=== PATIENT | female | born 1965 | race Caucasian/White ===

== ENCOUNTER 2017-04-08 06:52 | Inpatient (IN) ==
--- NOTE | 2017-04-07 19:01 | Discharge Summary ---
<Nyla Sherman E - Last Filed: 04/10/17 17:34> Date of Encounter: 04/10/17 Time of Encounter: 17:31 - Discharge Diagnosis (1) Osteoarthritis of left knee Priority: Primary Status: Chronic Qualifiers: Osteoarthritis type: unspecified Qualified Code(s): M17.12 - Unilateral primary osteoarthritis, left knee (2) Fracture of left tibial plateau Priority: Primary Status: Acute Qualifiers: Encounter type: sequela Fracture type: closed Qualified Code(s): S82.142S - Displaced bicondylar fracture of left tibia, sequela (3) Osteopenia Priority: Secondary Status: Chronic Qualifiers: Osteopenia location: unspecified Qualified Code(s): M85.80 - Other specified disorders of bone density and structure, unspecified site (4) Hyponatremia Priority: Secondary Status: Chronic (5) Nicotine dependence Priority: Secondary Status: Chronic Qualifiers: Nicotine product type: unspecified Substance use status: unspecified nicotine-induced disorder Qualified Code(s): F17.209 - Nicotine dependence, unspecified, with unspecified nicotine-induced disorders (6) Postoperative anemia Priority: Secondary Status: Resolved - Discharge Medications Home Medications: Albuterol Sulfate [Ventolin Hfa] 1 - 2 puff IH Q4-6H PRN 01/15/16 [History] Lisinopril [Zestril] 10 mg PO DAILY 01/15/16 [History] Mv,Ca,Fe,Min/FA/Guarana/Caff [One Daily Tablet] 1 tab PO DAILY 01/15/16 [History ] Loratadine [Claritin] 10 mg PO DAILY 02/20/16 [History] Aspirin Enteric Coated [Aspirin EC] 325 mg PO DAILY 21 Days #21 tablet. [Rx] OxyCODONE Immed Rel [Roxicodone 5 MG] 5 mg PO Q6HR PRN 7 Days #28 tablet [Rx] Ibuprofen [Motrin] 600 mg PO Q8HR PRN 04/08/17 [History] Allergies/Adverse Reactions: 3 Allergy/AdvReac Type Severity Reaction Status Date / Time No Known Allergies Allergy Verified 04/08/17 07:41 Date of admission: 04/08/17 Primary care physician: Charles Chang Discharging clinician: Jad Sanders Anticipated date of discharge: 04/10/17 - Patient Status Disposition: Home Health Service Condition: Good Functional capacity at discharge: uses cane/walker Overall status at discharge: patient is progressing back to baseline - Discharge Instructions Instructions: Total Knee Replacement, Clinic Director (GEN) Follow Up With: yNla Sherman PAC [Physician Spool Carrier] - 04/17/17 10:45 am (& also, , April 23, 2017 at 08:30 AM) Jad Sanders MD [Partnered Physician] - 05/06/17 3:30 pm Charles Chang MD [Primary Care Provider] - Additional Instructions: Discharge Instructions: Total Knee Replacement Please call [facility] ([phone]), your Primary Care Physician, or report to the Emergency Room if you have any of the following symptoms: Nausea, vomiting, fever greater that 101.5, swelling, chest pain, shortness of breath, increased pain/redness/drainage/odor for your incision site, numbness/ tingling, or any other concerning symptoms. ACTIVITY:Weight-bearing as tolerated. You may progress off support (crutches or walker) as tolerated. MEDICATIONS: Upon discharge resume your home medications. Take all the medications as prescribed. Take a stool softener if taking narcotic pain medications. Stool softeners are only effective if you drink enough fluids. Drink 6-8 glass of water or fluids a day, unless this is not allowed for another health problem. Despite using stool softeners, if you haven't had a bowel movement in 3 days, please switch to a gentle laxative. Gentle laxatives are sold over the counter. You should have a bowel movement within 24 hours, if not call the office. You will be discharged from the hospital with a prescription for pain medication. You are encouraged to decrease the use of narcotic pain medication as tolerated. Should you require a refill, please call the office. [facility] prescribes narcotic pain medication for only 4-6 weeks after surgery. If you require pain medication beyond this time period, you may be referred to your Primary Care Physician or to the Pain Clinic for further evaluation. Plan ahead for refills on pain medication as many narcotics either need to be picked up at the office or mailed. It is best to call 48-72 hours in advance of needing a prescription refill so you don't run out of medication. To help control the post-operative pain, you may take NSAIDs (Aleve,Advil, Motrin, Ibuprofen, Naprosyn) or Tylenol as prescribed on the bottle in addition to the pain medication. ANTICOAGULATION (blood thinners): Continue your Aspirin, Lovenox or Coumadin as prescribed to help prevent a blood clot in the leg or in the lungs. As long as your incision remains dry and you tolerate the NSAIDs (Aleve, Advil, Motrin, ibuprofen, naprosyn), it is OK to use the NSAIDS while you are taking your anticoagulation medication. Should your incision start to drain, stop the NSAID and contact our office. Common symptoms of blood clot in the legs include: localized pain, swelling, calf tenderness, redness or discoloration of the skin. Blood clot in the lung symptoms include: shortness of breath, rapid pulse, sweating, and chest pain that worsens with deep breathing, coughing up blood, lightheadedness, feelings of anxiety. If you experience any of these symptoms notify your physician immediately, go to the emergency room, or if having trouble breathing, call 911. WOUND CARE: Leave the dressing on for 7 to 10days. You may change the dressing if it becomes saturated greater than 50%. Do not get the dressing wet at anytime. Wash your hands with antibacterial soap, rinse and dry prior to any wound care. If you have french the visiting nurse or rehab facility can remove the stapes 10-14 days after surgery and place steri-strips across the wound. Leave the steri-strips in place until they fall off on their won. You may let water from the shower run on top of the steri-strips. If you do not have a visiting nurse or rehab facility, you will need to return to the office at 10-14 days for the french to be removed. If you have itching or redness around the dressing call the office. FOLLOW-UP: Please follow up with your surgeon in the orthopedic clinic in 4 weeks from the day of surgery. If you have french that need to be removed, you will need to come back to the office in 10-14 days from the day of surgery. - Diet and Activity Activity: as per physical therapy Diet: advance to your usual diet - Hospital Course Hospital course: Ms. Cage is a 51 year old female - Time Spent with Patient Total time spent providing and/or coordinating discharge services: - VTE Documentation of Mechanical Device: Venous foot pump, device <Jad Sanders - Last Filed: 04/13/17 18:51> Date of Encounter: 04/13/17 Time of Encounter: 18:50 - Discharge Diagnosis (1) Fracture of left tibial plateau Priority: Primary Status: Acute Qualifiers: Encounter type: sequela Fracture type: closed Qualified Code(s): S82.142S - Displaced bicondylar fracture of left tibia, sequela (2) Osteopenia Priority: Secondary Status: Chronic Qualifiers: Osteopenia location: unspecified Qualified Code(s): M85.80 - Other specified disorders of bone density and structure, unspecified site (3) Hyponatremia Priority: Secondary Status: Chronic (4) Nicotine dependence Priority: Secondary Status: Chronic Qualifiers: Nicotine product type: unspecified Substance use status: unspecified nicotine-induced disorder Qualified Code(s): F17.209 - Nicotine dependence, unspecified, with unspecified nicotine-induced disorders (5) Acute blood loss anemia Priority: Primary Status: Acute Primary care physician: Charles Chang - Patient Status Functional capacity at discharge: uses cane/walker Overall status at discharge: patient is progressing back to baseline - Hospital Course Hospital course: Ms. Cage is a 51 year old female Status post total knee replacement for fracture. Of lateral plateau. Patient had drop in hematocrit asymptomatic at discharge stable condition The patient had an uneventful postoperative course. They received antibiotics and physical therapy and were discharged in stable condition. There will follow -up in the office in 2 weeks. - Time Spent with Patient Total time spent providing and/or coordinating discharge services:
--- NOTE | 2017-04-07 19:03 | Physician Discharge Referral ---
Home Health/Hosp Referral Info Transfer to: Home Health Attending Provider: Dr. Jad Sanders - Diagnosis (1) Osteoarthritis of left knee Priority: Primary Status: Chronic (2) Fracture of left tibial plateau Priority: Primary Status: Acute (3) Osteopenia Priority: Secondary Status: Chronic (4) Hyponatremia Priority: Secondary Status: Chronic (5) Nicotine dependence Priority: Secondary Status: Chronic - Respiratory Orders Smoking Cessation: Smoking cessation has been advised. For more information, call the [place] Tobacco Quit Line at 8-568-JFVZ-NOW. - Dressing/Wound Care Site: left knee Type of Dressing/Treatments w/Frequency: Opsite placed. Keep dressing intact until first follow up appointment. If > 50% saturated, notify office, remove dressing and place appropriate dressing back in place. Dressing is water resistant, not water-proof. OK to shower, but do not get dressing wet. - Diet/Nutrition Diet/Nutrition Orders: Regular - Activity Activity Orders: Up ad landry, Ambulate, Walker Activity: List: Total Knee replacement Precautions x 6 weeks Apply cold therapy wrap 3-6x/day for 20 minutes at a time. Encourage ambulation throughout the day and incentive spirometer 10x/hour. Elevate affected extremity above heart as tolerated. Brace: Wear knee immobilizer at night x 2 weeks. - Services Needed Following services are medically necessary services: Nursing, Physical Therapy, Occupational Therapy - Transfer Medications Prescriptions: OxyCODONE Immed Rel [Roxicodone 5 MG] 5 mg PO Q6HR PRN 7 Days #28 tablet PRN Reason: Pain Aspirin Enteric Coated [Aspirin EC] 325 mg PO DAILY 21 Days #21 tablet. Home Medications: Albuterol Sulfate [Ventolin Hfa] 1 - 2 puff IH Q4-6H PRN 01/15/16 [History] Calcium Carbonate [Calcium] 500 mg PO DAILY 01/15/16 [History] Gabapentin [Gabapentin] 800 mg PO QID 01/15/16 [History] HYDROcodone/Acet 10/325 mg [Joppa 10-325 mg] 1 tab PO TID PRN 01/15/16 [History] Lisinopril [Zestril] 10 mg PO DAILY 01/15/16 [History] Meloxicam [Meloxicam] 7.5 mg PO BID 01/15/16 [History] Mv,Ca,Fe,Min/FA/Guarana/Caff [One Daily Tablet] 1 tab PO DAILY 01/15/16 [History ] Tiotropium [place] [Spiriva Respimat] 1 puff IH DAILY 01/15/16 [History] Amitriptyline [Elavil] 25 mg PO HS 02/20/16 [History] Lidocaine [Lidovex] 1 appl TP AD 02/20/16 [History] Loratadine [Claritin] 10 mg PO DAILY 02/20/16 [History] Oxycodone HCl/Acetaminophen [Percocet 10-325 mg Tablet] 1 each PO Q6HR PRN #28 tablet 02/20/16 [Rx] HYDROcodone/Acet 5/325 mg [Joppa 5-325 mg] 1 tab PO Q4H PRN #15 tab 07/14/16 [Rx ] Aspirin Enteric Coated [Aspirin EC] 325 mg PO DAILY 21 Days #21 tablet. [Rx] OxyCODONE Immed Rel [Roxicodone 5 MG] 5 mg PO Q6HR PRN 7 Days #28 tablet [Rx] Allergies/Adverse Reactions: 3 Allergy/AdvReac Type Severity Reaction Status Date / Time No Known Allergies Allergy Verified 02/20/16 07:10 Certification: Further, I certify that my clinical findings support that this patient is homebound (i.e. absences from home require considerable and taxing effort and are for medical reasons or jainism services or infrequently or short duration when for other reasons) because: Homebound Reason: Post-surgery restriction and or conditions limit ability to leave home Attestation: My signature below is to certify that this patient is under my care and that I, or nurse practitioner, or a physician assistant dean working with me, has a face-to- face encounter with this patient.
[2017-04-08] MEDS ORDERED: Albuterol 2.5 MG/3 ML NEBULIZER IH ONE (07:26)
[2017-04-08] MEDS ORDERED: CeFAZolin Syr 2,000MG/20 ML 2,000 MG/20 ML SYRINGE IVPB ONE (07:26)
[2017-04-08] MEDS ORDERED: Lidocaine -MPF 1% 2 ML VIAL ID ONE (07:26)
[2017-04-08] MEDS ORDERED: Ringers Solution, Lactated 1,000 ML IVC SCH ×2 (07:30→11:07)
[2017-04-08] MEDS ORDERED: Ketamine *HR* 500 MG/10 ML MDV ONE (07:38)
[2017-04-08] MEDS ORDERED: *HR* Midazolam HCl 2 MG/2 ML VIAL ONE (07:38)
[2017-04-08] MEDS ORDERED: *HR* Propofol 200 MG/20 ML VIAL IVP ONE (07:38)
[2017-04-08] MEDS ORDERED: *HR* FentaNYL (PF) 100 MCG/2 ML VIAL ONE (07:38)
[2017-04-08] MEDS ORDERED: Lidocaine -MPF 2% 2 ML VIAL ONE (07:41)
--- NOTE | 2017-04-08 07:41 | Anesthesia Evaluation PreOp ---
Date of Encounter: 04/08/17 Time of Encounter: 07:39 - Past History Planned Operation: Left Total Knee Cardiac History: HTN Pulmonary History: Smoker, Pack/yr (1/2 ppd x 8 years) [employer] History: Denies Any Significant HX Other Medical History: Denies Any Significant HX Anesthesia History: No Prior Anesthetic Complications, Past Anesthesia (Right ankle sx) : No Alcohol Use: none Drug use: none Medications and Allergies Albuterol Sulfate [Ventolin Hfa] 1 - 2 puff IH Q4-6H PRN 01/15/16 [History] Lisinopril [Zestril] 10 mg PO DAILY 01/15/16 [History] Mv,Ca,Fe,Min/FA/Guarana/Caff [One Daily Tablet] 1 tab PO DAILY 01/15/16 [History ] Loratadine [Claritin] 10 mg PO DAILY 02/20/16 [History] Aspirin Enteric Coated [Aspirin EC] 325 mg PO DAILY 21 Days #21 tablet. [Rx] OxyCODONE Immed Rel [Roxicodone 5 MG] 5 mg PO Q6HR PRN 7 Days #28 tablet [Rx] Ibuprofen [Motrin] 600 mg PO Q8HR PRN 04/08/17 [History] 3 Allergy/AdvReac Type Severity Reaction Status Date / Time No Known Allergies Allergy Verified 04/08/17 07:41 - Meds/Allergy Pre-op Review Medications Reviewed: Yes Allergies Reviewed: Yes Beta Blockers on Current Med List: No Anesthesia Results - Labs Laboratory Tests 04/06/17 04/06/17 04/07/17 13:46 13:46 17:40 WBC 4.6 Hgb 11.0 L Hct 33.4 L Plt Count 432 H INR 0.9 Sodium 127 L Potassium 4.0 Chloride 95 L Carbon Dioxide 25 BUN 5 L Creatinine 0.66 - Imaging EKG: image reviewed (SINUS TACHYCARDIA POSSIBLE RIGHT VENTRICULAR CONDUCTION DELAY ABNORMAL RHYTHM ECG) Anesthesia Exam O2 Sat Height 1.57 m Height 1.57 m Height 1.57 m Weight 47.627 kg Weight 47.627 kg Weight 47.627 kg O2 Sat by Pulse Oximetry 93 O2 Sat by Pulse Oximetry 93 O2 Sat by Pulse Oximetry 93 Vital Signs Temp Pulse Resp BP Pulse Ox 98.4 F 98 18 122/79 93 04/08/17 07:20 04/08/17 07:20 04/08/17 07:20 04/08/17 07:20 04/08/17 07:20 - HEENT Pupil (Motor): Pupils equal, EOMI Mallampati: I Teeth: Normal Oral Opening: Greater than 3 - [employer] LOC: Oriented [employer] Motor: Normal RUE, Normal LUE, Normal RLE, Normal LLE, Normal Face [employer] Sensory: Normal: RUE, LUE, RLE, LLE, Face - Cardiac Rhythm: Regular Murmur: None JVD: No Carotid Bruit: No - Pulmonary Breath Sounds: bilateral Clear Respiratory Effort: Symmetrical Anesthesia Assess/Plan ASA Score: 2 Modified Jena Scale for Level of Consciousness: Cooperative, oriented, and tranquil Anesthetic Plan: General, Regional (Left Fem. Nerve Block) Autologous Blood: Yes Monitoring Plan: Standard Monitors Recovery Plan: PACU
[2017-04-08] MEDS ORDERED: Ethanol\\Acetic Acid\\Na Ace\\Ben 1,000 ML IRRIG.SOLN IR ONE (07:44)
[2017-04-08] MEDS ORDERED: Acetaminophen IV 1,000 MG/100 ML INFUS..BTL ONE (07:45)
[2017-04-08] MEDS ORDERED: Bupivacaine-MPF 0.25% 10 ML VIAL ONE (07:45)
[2017-04-08] MEDS ORDERED: ROPIVACAINE HCL/PF 0.5% 30 ML VIAL ONE (07:45)
--- NOTE | 2017-04-08 07:46 | History & Physical Report ---
Date of Encounter: 04/08/17 Time of Encounter: 07:46 24 Hour HP Update - Instructions Instructions: If the History and Physical is less than 30 days old and was completed prior to A.M. admission and or procedure and has NOT been updated on calendar day of procedure please complete this update prior to performing procedure. - Update Patient reports changes in Medical Condition: No Changes in examination, assessment, or condition: No Changes in Medication: No Preop tests/diagnostics Reviewed: Yes Surgery Remains Indicated: Yes Consent for Planned Operative Procedure(s) Verified: Yes - Pre-Operative Checklist Preoperative Checklist Indicated: No Prophylactic Antibiotic Ordered: Yes Is VTE Prophylaxis Indicated?: Yes
--- NOTE | 2017-04-08 08:23 | Anesthesia Procedures ---
Date of Encounter: 04/08/17 Time of Encounter: 08:21 Procedures: Anesthesia - Nerve Block Procedure Date: 04/08/17 Time: 08:21 Allergies/Adv Reactions: nka Pre-op Diagnosis: left knee OA Surgical Procedure: left TKA Checklist: Correct Patient Identifier Correct side: Left Blood Thinner: No Monitor Applied: EKG, BP, Pulse Oximetry Supplemental Oxygen via Nasal Cannula (L/min): 2 Sedation: Versed (mg): 2 Sedation: Fentanyl (mcg): 100 Indication: Post Op Analgesia Pre-op Neuro Deficits: No Block Type: Femoral, Other (ipack) Catheter placed: No Sterile Technique: Yes Ultrasound used: Yes Anatomy identified: Yes Visual spread of Local: Yes Neuro Stimulation: Yes (femoral only) Nerve Stimulator Range: 0.2 - 0.4 mA Blood on Needle Aspiration: No Smooth Injection of Local: Yes Pain with Injection of Local: No Prep: Chlorhexadine Needle: 22 x 50 mm Stimuplex (femoral), 21 x 100 mm Stimuplex (echogenic ipack) Local: Ropivacaine (0.5% + 8mg decadron (20mL)), Other (0.25% bupivacaine + 8mg decadron (20mL)) Volume (cc): 40 Number of Attempts: 1 Complications: None/effective block Vitals: Vital Signs/O2 Sat/Glucose, Most Recent Temp Pulse Resp BP Pulse Ox 98.4 F 100 16 117/81 96 04/08/17 07:29 04/08/17 08:19 04/08/17 08:19 04/08/17 08:19 04/08/17 08:19
[2017-04-08] MEDS ORDERED: *HR* Promethazine 25 MG/ML VIAL IVP PRN (08:24)
[2017-04-08] MEDS ORDERED: *HR* Labetalol 20 MG/4 ML SYRINGE IVP PRN (08:24)
[2017-04-08] MEDS ORDERED: *HR* Magnesium Sulfate 1 GM/2 ML VIAL ONE (08:39)
[2017-04-08] MEDS ORDERED: Dexamethasone 4 MG/ML VIAL ONE (08:40)
[2017-04-08] MEDS ORDERED: Ondansetron 4 MG/2 ML VIAL ONE (08:40)
[2017-04-08] MEDS ORDERED: Ketorolac 30 MG/ML VIAL ONE (08:43)
[2017-04-08] MEDS ORDERED: *HR* HYDROmorphone 2 MG/ML SYRINGE ONE ×2 (08:50→09:49)
[2017-04-08] MEDS ORDERED: Esmolol 100 MG/10 ML VIAL IVP ONE (08:52)
--- NOTE | 2017-04-08 09:17 | Orthopedic Operative Note ---
Date of procedure: 04/08/17 Pre-op diagnosis: displace left lateral tibial plateau fracture Post-op diagnosis: same Procedure: Procedure: Left Total knee replacement Estimated blood loss: 200 cc Hardware: Metal and polyethylene replacement. Arthrex Femur: 4 Tibia: 4 PS insert: 12 Patella:34 Exam Under anesthesia: Full motion valgus instability Procedural Notes: Large 70% central depression fracture lateral tibial plateau Operative procedure: The patient was brought to the operating room and placed on the operating room table. After general anesthesia was administered the operative knee was examined. Findings were noted in the exam under anesthesia. The operative extremity was prepped and draped in sterile surgical fashion. The patient received IV antibiotics prior to skin incision. A standard midline incision was made centered over the patella. The incision was made through the skin and subcutaneous tissue. A medial parapatellar tendon approach was performed. Care was taken to preserve tissue along the medial aspect of the patella. And to protect the patella tendon. The deep MCL was released off the medial tibia. The infra patella fat pad was excised. Knee was brought into flexion. Patient noted to have Large 70% central depression fracture lateral tibial plateau. The entry hole was made for the intramedullary femoral guide. The guide was seated in 6 degrees of valgus. Anterior cut was made followed by the distal cut. The ACL the PCL the medial and the lateral menisci were excised. The tibia was subluxed forward. The entry hole was made for the intramedullary tibial guide. Guide was seated to resect 2 mm off the more abnormal side. The knee was brought into flexion the distal femur was sized 4. The femoral guide was seated , the anterior cut was made followed by the posterior condylar cut, followed by the chamfer cuts. The finishing guide was seated the box cut was made and the lug holes were drilled. The tibia was sized 4, the tibial tray was seated and prepared with the large drill followed by the fin cutter. Trial reduction revealed full extension no varus valgus instability with the appropriate 12 PS Katharina. The patella was everted and cut was made at the level of the insertion of the quadriceps and patella tendon. The patella was sized 34 the guide was seated and the lug holes are drilled. Trial reduction revealed excellent patella tracking. All trial components were removed all bony surfaces were irrigated. The tibia was cemented first followed by the femur. 12 PS Katharina was seated and the knee was brought into full extension. The patella was cemented and held in place with the patellar holding clamp. After the cement had hardened, the knee sat for 2 minutes with a Betadine saline solution. The PA closed the knee. The knee was then irrigated out with 2 L of pulse irrigation. The extensor mechanism was closed with #2 FiberWire suture and #2 PDS suture. The subcutaneous tissue was then irrigated and closed deep with #1 PDS suture superficially with 0 PDS suture and skin was closed with skin french. The patient was then placed in a sterile dressing and a postoperative brace extubated and transferred to recovery room in stable condition. Anesthesia: GETConnie Surgeon: Jad Sanders Condition: stable Disposition: PACU
[2017-04-08] MEDS: *HR* HYDROmorphone (PF) 1 MG/ML SYRINGE IVP PRN ×4 (09:55→22:30)
[2017-04-08] MEDS ORDERED: *HR* HYDROmorphone (PF) 1 MG/ML SYRINGE ONE (09:55)
[2017-04-08 10:24] LABS: Hematocrit 31.4 % (35.3-44.9); Hemoglobin 10.6 g/dL (11.5-15.4)
--- NOTE | 2017-04-08 10:49 | Anesthesia Evaluation Post Op ---
Date of Encounter: 04/08/17 Time of Encounter: 10:19 - Vital Signs Vital Signs: vss - Lungs Lungs: Clear Ascult./Percussion - Airway Airway: Non-obstructed - Cardiovascular Baseline Rhythm - Mental Status Mental Status: Asleep with brisk response to light stimulation - Pain Pain Scale used: Eduardo (Faces) (no apparent distress noted,) - Nausea Vomiting Nausea Vomiting: Not Present - Hydration Hydration: Ice chips - Discharge PostOp Status: Transfer Patient to floor
[2017-04-08] MEDS ORDERED: Temazepam 15 MG CAPSULE PO PRN (11:07)
[2017-04-08] MEDS ORDERED: Ondansetron 4 MG/2 ML VIAL IVP PRN (11:07)
[2017-04-08] MEDS ORDERED: Naloxone 0.4 MG/ML INJ IVP PRN (11:07)
[2017-04-08] MEDS ORDERED: MOM Conc 10 ML UD.LIQ PO PRN (11:07)
[2017-04-08] MEDS ORDERED: Sennosides 8.6 MG TABLET PO PRN (11:07)
[2017-04-08] MEDS ORDERED: *HR* OxyCODONE Immed Rel 5 MG TABLET PO PRN (11:07)
[2017-04-08] MEDS: *HR* OxyCODONE Immed Rel 5 MG TABLET PO PRN ×3 (11:58→20:54)
[2017-04-08] MEDS: Multivit/Ca/Min/Fe/FA 1 TAB TABLET PO SCH (11:58)
[2017-04-08] MEDS: Loratadine 10 MG TABLET PO SCH (11:59)
[2017-04-08] MEDS: CeFAZolin Premix DUPLEX 2,000 MG/50 ML BAG IVPB SCH (16:34)
[2017-04-08] MEDS ORDERED: *HR* Enoxaparin 30 MG/0.3 ML SYRINGE SQ SCH (18:00)
[2017-04-08] MEDS: *HR* Enoxaparin 30 MG/0.3 ML SYRINGE SQ SCH (18:32)
[2017-04-09] MEDS: CeFAZolin Premix DUPLEX 2,000 MG/50 ML BAG IVPB SCH (00:14)
[2017-04-09 01:38] LABS: Hematocrit 22.3 % (35.3-44.9)
[2017-04-09 01:39] LABS: Hemoglobin 7.6 g/dL (11.5-15.4)
[2017-04-09 01:52] LABS: BUN/Creatinine Ratio 7 (6-26); Calcium 8.9 mg/dL (8.6-10.8); Carbon Dioxide 27 mEq/L (19-29); Chloride 101 mEq/L (98-109); Glucose 174 mg/dL (70-99); Osmolality,Calculated 275 (280-300); Sodium 132 mEq/L (136-145); eGFR For African Americans > 60 (> 60); eGFR For Non-African Americans > 60 (> 60)
[2017-04-09 01:54] LABS: Blood Urea Nitrogen 5 mg/dL (7-20)
[2017-04-09] MEDS: *HR* OxyCODONE Immed Rel 5 MG TABLET PO PRN ×5 (02:01→21:33)
[2017-04-09] MEDS: *HR* Enoxaparin 30 MG/0.3 ML SYRINGE SQ SCH ×2 (06:05→16:33)
[2017-04-09] MEDS: Multivit/Ca/Min/Fe/FA 1 TAB TABLET PO SCH (07:55)
[2017-04-09] MEDS: Loratadine 10 MG TABLET PO SCH (07:55)
--- NOTE | 2017-04-09 10:42 | Orthopedics Progress Note ---
Date of Encounter: 04/09/17 Time of Encounter: 10:41 Subjective Interval history: S: Patient with expected knee pain one day status post right total knee replacement. Block worn off, denies N/V, denies F/C/NS O: AFVSS Dressing clean dry and intact No surrounding erythema Range of motion deferred Distally neurovascularly intact A/P: Postop day 1 status post right total knee replacement Continue PT as scheduled, WBAT PO pain control Discharge planning, follow-up as scheduled Objective Vital signs: Vital Signs Temp Pulse Resp BP Pulse Ox 04/09/17 07:16 98.6 F 82 14 118/67 97 04/09/17 04:20 98.2 F 92 16 96/59 93 04/08/17 23:11 97.7 F 86 16 100/55 96 04/08/17 19:04 98.2 F 83 18 99/55 95 04/08/17 15:53 97.9 F 70 18 101/59 94 04/08/17 13:55 98.2 F 77 16 102/62 94 04/08/17 13:02 97.7 F 67 18 95/56 96 04/08/17 11:18 93 04/08/17 11:15 97.4 F L 81 16 95/60 93 04/08/17 10:45 97.5 F L 90 14 95/60 95 Intake and Output 04/08/17 04/09/17 04/09/17 23:59 07:59 15:59 Intake Total 290 / 290 120 / 120 Output Total 0 / 0 300 / 300 Balance 290 / 290 -300 / -300 120 / 120 Intake: IV Fluids 50 / 50 Ancef Premix DUPLEX 2,000 mg In 50 / 50 50 ml @ 100 mls/hr IVPB Q8HR [facility] Rx#:[id number] Oral 240 / 240 120 / 120 Output: Urine 0 / 0 300 / 300 Other: Meal Dinner Breakfast Percent of Meal Consumed 100% 40% # Voids 2 1 Weight 47.2 kg Patient Weight 04/09/17 23:59 Weight 47.2 kg - Labs CBC & BMP: 04/09/17 01:19 04/09/17 01:19 Labs: Abnormal lab results Hgb 7.6 g/dL (11.5-15.4) L D 04/09/17 01:19 Hct 22.3 % (35.3-44.9) L 04/09/17 01:19 Sodium 132 mEq/L (136-145) L 04/09/17 01:19 BUN 5 mg/dL (7-20) L 04/09/17 01:19 Glucose 174 mg/dL (70-99) H 04/09/17 01:19 Calculated Osmolality 275 (280-300) L 04/09/17 01:19 - VTE Documentation of Mechanical Device: Venous foot pump, device Consult Discharge Plan - Plan Referrals: Charles Chang MD [Primary Care Provider] -
[2017-04-09] MEDS: *HR* HYDROmorphone (PF) 1 MG/ML SYRINGE IVP PRN ×3 (11:23→19:28)
[2017-04-10] MEDS: *HR* OxyCODONE Immed Rel 5 MG TABLET PO PRN ×4 (02:46→18:29)
[2017-04-10 04:33] LABS: Hematocrit 20.2 % (35.3-44.9); Hemoglobin 6.8 g/dL (11.5-15.4)
[2017-04-10 04:53] LABS: BUN/Creatinine Ratio 7 (6-26); Calcium 8.6 mg/dL (8.6-10.8); Carbon Dioxide 26 mEq/L (19-29); Chloride 97 mEq/L (98-109); Glucose 109 mg/dL (70-99); Osmolality,Calculated 267 (280-300); Potassium 3.8 mEq/L (3.5-4.5); Sodium 130 mEq/L (136-145); eGFR For African Americans > 60 (> 60); eGFR For Non-African Americans > 60 (> 60)
[2017-04-10 04:59] LABS: Blood Urea Nitrogen 4 mg/dL (7-20)
[2017-04-10] MEDS: *HR* Enoxaparin 30 MG/0.3 ML SYRINGE SQ SCH (06:46)
--- NOTE | 2017-04-10 07:31 | Orthopedics Progress Note ---
Date of Encounter: 04/10/17 Time of Encounter: 07:50 - Assessment and Plan (1) Osteoarthritis of left knee Current Visit: Yes Status: Chronic Qualifiers: Osteoarthritis type: unspecified Qualified Code(s): M17.12 - Unilateral primary osteoarthritis, left knee (2) Fracture of left tibial plateau Current Visit: Yes Status: Acute Qualifiers: Encounter type: sequela Fracture type: closed Qualified Code(s): S82.142S - Displaced bicondylar fracture of left tibia, sequela (3) Osteopenia Current Visit: No Status: Chronic Qualifiers: Osteopenia location: unspecified Qualified Code(s): M85.80 - Other specified disorders of bone density and structure, unspecified site (4) Hyponatremia Current Visit: No Status: Chronic (5) Nicotine dependence Current Visit: No Status: Chronic Qualifiers: Nicotine product type: unspecified Substance use status: unspecified nicotine-induced disorder Qualified Code(s): F17.209 - Nicotine dependence, unspecified, with unspecified nicotine-induced disorders (6) Postoperative anemia Current Visit: Yes Status: Acute Transfuse 2 units after type and cross today with recheck h/h Subjective Principal diagnosis: s/p left TKR, h/o left tibial plateau fx Interval history: POD #2 Left TKR for OA and displace left lateral tibial plateau fracture Dr. Sanders S: Patient c/o burning pain to posterior knee. Block worn off, denies N/V, denies F/C/NS. Admits to fatigue and per patient feeling run down. O: AFVSS H/H 6.8/20.2 Dressing clean dry and intact No surrounding erythema Range of motion improving No calf tenderness Neurovascularly intact b/l LE A/P: POD#2 status post right total knee replacement Transfuse 2 units after type and cross for post-op anemia - ok to d/c home if h/ h improves after transfusions Discussed transfusion with patient - verbalizes understanding Continue PT, WBAT Pain controlled Discharge planning - Home with Dayna TERRELL - bedside commode rx signed for patient. Follow-up as scheduled. Objective Vital signs: Vital Signs Temp Pulse Resp BP Pulse Ox 04/10/17 07:16 98.2 F 98 14 121/77 93 04/10/17 04:11 98.4 F 89 14 137/80 92 04/09/17 23:21 98.1 F 87 16 140/72 94 04/09/17 19:33 97.6 F 99 18 164/85 98 04/09/17 16:49 98.2 F 77 15 132/87 94 04/09/17 11:38 98.0 F 85 17 103/64 94 Intake and Output 04/09/17 04/09/17 04/10/17 15:59 23:59 07:59 Intake Total 420 / 420 410 / 410 350 / 350 Output Total 275 / 275 1400 / 1400 Balance 420 / 420 135 / 135 -1050 / -1050 Intake: Oral 420 / 420 410 / 410 350 / 350 Output: Urine 275 / 275 1400 / 1400 Other: Meal Lunch Percent of Meal Consumed 80% # Voids 1 3 1 # Bowel Movements 0 - Labs CBC & BMP: 04/10/17 03:30 04/10/17 03:30 Labs: Abnormal lab results Hgb 6.8 g/dL (11.5-15.4) L 04/10/17 03:30 Hct 20.2 % (35.3-44.9) L 04/10/17 03:30 Sodium 130 mEq/L (136-145) L 04/10/17 03:30 Chloride 97 mEq/L (98-109) L 04/10/17 03:30 BUN 4 mg/dL (7-20) L 04/10/17 03:30 Creatinine 0.56 mg/dL (0.57-1.11) L 04/10/17 03:30 Glucose 109 mg/dL (70-99) H 04/10/17 03:30 Calculated Osmolality 267 (280-300) L 04/10/17 03:30 - VTE Documentation of Mechanical Device: Venous foot pump, device Consult Discharge Plan - Plan Referrals: Nyla Sherman, PAC [Physician Environmental Services Supervisor] - 04/17/17 10:45 am (& also, April at 08:30 AM) Jad Sanders MD [Partnered Physician] - 05/06/17 3:30 pm Charles Chang MD [Primary Care Provider] -
[2017-04-10] MEDS ORDERED: 0.9 % Sodium Chloride 500 ML ONE ×2 (08:35→12:00)
[2017-04-10] MEDS: *HR* HYDROmorphone (PF) 1 MG/ML SYRINGE IVP PRN ×3 (08:47→16:40)
[2017-04-10] MEDS: Loratadine 10 MG TABLET PO SCH (09:20)
[2017-04-10] MEDS: Multivit/Ca/Min/Fe/FA 1 TAB TABLET PO SCH (09:20)
[2017-04-10 15:21] VITALS: BP 152/81
[2017-04-10 17:19] LABS: Hemoglobin 11.1 g/dL (11.5-15.4)
== END 2017-04-10 18:44 | disposition home health service (06) | DRG 302 ==
LOC: SAMDAY 06:52 → 3NENU 10:40
PROVIDERS: ADMIT Orthopaedic Surgery; ATTEND Orthopaedic Surgery

== ENCOUNTER 2020-03-31 13:20 | Observation (INO) ==
[2020-03-31] MEDS ORDERED: *HR* FentaNYL (PF) 100 MCG/2 ML VIAL IVP ONE (13:25)
[2020-03-31] MEDS ORDERED: Ondansetron 4 MG/2 ML VIAL IVP ONE (13:25)
[2020-03-31] MEDS ORDERED: 0.9 % Sodium Chloride 1,000 ML IVC SCH (13:30)
[2020-03-31] MEDS ORDERED: 0.9 % Sodium Chloride 1,000 ML ONE (13:31)
[2020-03-31 13:45] LABS: Basophils # 0.1 K/mcL (0.0-0.2); Basophils % 0.7 %; Eosinophils # 0.2 K/mcL (0.0-0.6); Eosinophils % 2.4 %; Hematocrit 31.8 % (35.3-44.9); Hemoglobin 10.7 g/dL (11.5-15.4); Immature Granulocytes % 0.3 % (0-4); Lymphocytes # 0.8 K/mcL (0.6-4.6); Lymphocytes % 8.5 %; Mean Corpuscular HGB Conc 33.6 g/dL (31.6-35.5); Mean Corpuscular Hemoglobin 31.8 pg (28.0-33.3); Mean Corpuscular Volume 94.4 fL (83.0-100.0); Mean Platelet Volume 8.9 fL (9.4-12.4); Monocytes # 0.8 K/mcL (0.0-1.3); Platelet Count 384 K/mcL (140-400); Red Blood Count 3.37 M/mcL (3.82-4.97); Red Cell Distribution Width 11.9 % (11.5-14.5); Segmented Neutrophils % 79.1 %; White Blood Count 8.8 K/mcL (4.3-11.1)
[2020-03-31 13:47] LABS: INR 0.9; Prothrombin Time 10.6 Seconds (9.4-12.1)
[2020-03-31] MEDS ORDERED: *HR* HYDROcodone/Acet 5/325 mg TABLET PO ONE (14:03)
[2020-03-31 14:05] LABS: Alanine Aminotransferase 26 Units/L (7-52); Albumin/Globulin Ratio 1.3 (1.1-2.2); Alkaline Phosphatase 94 Units/L (34-104); Aspartate Amino Transferase 35 Units/L (13-39); BUN/Creatinine Ratio 10 (6-26); Bilirubin,Direct 0.1 mg/dL (0.0-0.2); Bilirubin,Indirect 0.5 mg/dL (0.0-1.0); Bilirubin,Total 0.6 mg/dL (0.3-1.0); Blood Urea Nitrogen 5 mg/dL (6-20); Calcium 8.7 mg/dL (8.6-10.3); Carbon Dioxide 21 mEq/L (23-29); Chloride 90 mEq/L (98-107); Glucose 161 mg/dL (70-105); Osmolality,Calculated 255 (280-300); Potassium 4.2 mEq/L (3.5-5.1); Sodium 122 mEq/L (136-145); eGFR For African Americans > 60 (> 60); eGFR For Non-African Americans > 60 (> 60)
[2020-03-31] MEDS ORDERED: Ketorolac 15 MG/ML VIAL IVP ONE (15:06)
[2020-03-31 15:33] LABS: BUN/Creatinine Ratio 11 (6-26); Blood Urea Nitrogen 5 mg/dL (6-20); Calcium 8.9 mg/dL (8.6-10.3); Carbon Dioxide 23 mEq/L (23-29); Chloride 90 mEq/L (98-107); Glucose 141 mg/dL (70-105); Osmolality,Calculated 254 (280-300); Potassium 4.1 mEq/L (3.5-5.1); Sodium 122 mEq/L (136-145); eGFR For African Americans > 60 (> 60); eGFR For Non-African Americans > 60 (> 60)
[2020-03-31] MEDS ORDERED: *HR* HYDROmorphone (PF) 1 MG/ML SYRINGE IVP ONE (16:34)
[2020-03-31] MEDS ORDERED: Naloxone 0.4 MG/ML INJ IVP PRN (17:19)
[2020-03-31] MEDS ORDERED: Ondansetron 4 MG/2 ML VIAL IVP PRN (17:19)
[2020-03-31] MEDS ORDERED: Ipratropium/Albuterol Neb 3 ML IH PRN (17:22)
[2020-03-31] MEDS: *HR* HYDROmorphone (PF) 1 MG/ML SYRINGE IVP PRN ×3 (18:25→23:17)
[2020-03-31 19:50] LABS: Bacteria,Urine Many per hpf (None-Few); Bilirubin,Urine Negative (Negative); Blood,Urine Negative (Negative); Clarity,Urine Ex.Turbid (Clear); Color,Urine Light-Orange (Yellow); Glucose,Urine (UA) Normal (Normal); Hyaline Casts,Urine Many per lpf (None Seen); Ketones,Urine Negative (Negative); Leukocyte Esterase,Urine Negative (Negative); Mucus,Urine Few per lpf (None-Few); Nitrite,Urine Negative (Negative); Protein,Urine Trace mg/dL (Neg-Trace); RBC,Urine 0-3 per hpf (0-3); Specific Gravity,Urine 1.012 (1.010-1.025); Squamous Epithelial Cell,Urine Moderate per hpf (None-Few); Urobilinogen,Urine Normal (Normal)
[2020-03-31] MEDS: Nicotine 7 MG PATCH.TD24 TD SCH (21:11)
[2020-03-31] MEDS: 0.9 % Sodium Chloride 1,000 ML IVC SCH (21:11)
[2020-04-01 00:01] LABS: Protein/Creatinine Ratio,Urine 0.13 mg/mg (0.00-0.20); Sodium, Urine 11.3 mEq/L
[2020-04-01 00:35] LABS: Basophils # 0.1 K/mcL (0.0-0.2); Eosinophils # 0.1 K/mcL (0.0-0.6); Eosinophils % 0.8 %; Hematocrit 28.5 % (35.3-44.9); Hemoglobin 9.7 g/dL (11.5-15.4); Immature Granulocytes % 0.2 % (0-4); Lymphocytes # 1.7 K/mcL (0.6-4.6); Lymphocytes % 27.5 %; Mean Corpuscular Volume 94.1 fL (83.0-100.0); Mean Platelet Volume 8.8 fL (9.4-12.4); Monocytes # 0.7 K/mcL (0.0-1.3); Monocytes % 11.2 %; Neutrophils # 3.6 K/mcL (1.6-8.9); Platelet Count 337 K/mcL (140-400); Red Blood Count 3.03 M/mcL (3.82-4.97); Red Cell Distribution Width 11.7 % (11.5-14.5); Segmented Neutrophils % 59.3 %; White Blood Count 6.1 K/mcL (4.3-11.1)
[2020-04-01] MEDS: *HR* HYDROmorphone (PF) 1 MG/ML SYRINGE IVP PRN ×9 (01:08→22:36)
[2020-04-01] MEDS: Nicotine 7 MG PATCH.TD24 TD SCH (08:36)
[2020-04-01 09:52] LABS: BUN/Creatinine Ratio 11 (6-26); Blood Urea Nitrogen 5 mg/dL (6-20); Calcium 8.5 mg/dL (8.6-10.3); Carbon Dioxide 23 mEq/L (23-29); Chloride 95 mEq/L (98-107); Glucose 77 mg/dL (70-105); Osmolality,Calculated 260 (280-300); Potassium 3.5 mEq/L (3.5-5.1); Sodium 127 mEq/L (136-145); eGFR For African Americans > 60 (> 60); eGFR For Non-African Americans > 60 (> 60)
[2020-04-01] MEDS ORDERED: Albuterol 2.5 MG/3 ML NEBULIZER IH PRN (10:15)
[2020-04-01] MEDS: Ipratropium/Albuterol Neb 3 ML IH SCH ×4 (11:42→23:59)
[2020-04-01] MEDS: 0.9 % Sodium Chloride 1,000 ML IVC SCH (17:29)
[2020-04-02] MEDS: *HR* HYDROmorphone (PF) 1 MG/ML SYRINGE IVP PRN ×6 (00:48→11:50)
[2020-04-02 06:24] LABS: BUN/Creatinine Ratio 7 (6-26); Blood Urea Nitrogen 3 mg/dL (6-20); Calcium 8.6 mg/dL (8.6-10.3); Carbon Dioxide 24 mEq/L (23-29); Chloride 95 mEq/L (98-107); Glucose 103 mg/dL (70-105); Osmolality,Calculated 257 (280-300); Potassium 4.4 mEq/L (3.5-5.1); Sodium 125 mEq/L (136-145); eGFR For African Americans > 60 (> 60); eGFR For Non-African Americans > 60 (> 60)
[2020-04-02 06:33] LABS: Thyroid Stimulating Hormone 2.455 mcIU/mL (0.340-5.600)
[2020-04-02] MEDS: Nicotine 7 MG PATCH.TD24 TD SCH (07:44)
[2020-04-02] MEDS: lisinopriL 10 MG TABLET PO SCH (07:44)
[2020-04-02] MEDS: Ipratropium/Albuterol Neb 3 ML IH SCH ×6 (11:28→20:31)
[2020-04-02 12:18] LABS: BUN/Creatinine Ratio 7 (6-26); Blood Urea Nitrogen 3 mg/dL (6-20); Calcium 8.1 mg/dL (8.6-10.3); Carbon Dioxide 24 mEq/L (23-29); Chloride 93 mEq/L (98-107); Glucose 92 mg/dL (70-105); Osmolality,Calculated 252 (280-300); Potassium 3.3 mEq/L (3.5-5.1); Sodium 123 mEq/L (136-145); eGFR For African Americans > 60 (> 60); eGFR For Non-African Americans > 60 (> 60)
[2020-04-02] MEDS: 0.9 % Sodium Chloride 1,000 ML IVC SCH (13:18)
[2020-04-02] MEDS ORDERED: *HR* OxyCODONE/APAP 5/325 TABLET PO PRN (13:50)
[2020-04-02] MEDS: *HR* OxyCODONE/APAP 10/325 TABLET PO PRN (14:20)
[2020-04-02] MEDS: Ketorolac 30 MG/ML VIAL IVP PRN ×2 (15:34→22:21)
[2020-04-02 16:18] LABS: BUN/Creatinine Ratio 9 (6-26); Blood Urea Nitrogen 4 mg/dL (6-20); Calcium 8.1 mg/dL (8.6-10.3); Carbon Dioxide 24 mEq/L (23-29); Chloride 93 mEq/L (98-107); Glucose 119 mg/dL (70-105); Osmolality,Calculated 252 (280-300); Potassium 3.3 mEq/L (3.5-5.1); Sodium 122 mEq/L (136-145); eGFR For African Americans > 60 (> 60); eGFR For Non-African Americans > 60 (> 60)
[2020-04-03] MEDS: Ipratropium/Albuterol Neb 3 ML IH SCH ×3 (00:16→08:10)
[2020-04-03] MEDS: *HR* OxyCODONE/APAP 10/325 TABLET PO PRN ×3 (00:35→13:42)
[2020-04-03 03:49] LABS: Basophils % 0.5 %; Eosinophils # 0.1 K/mcL (0.0-0.6); Eosinophils % 1.4 %; Hematocrit 19.9 % (35.3-44.9); Immature Granulocytes % 0.3 % (0-4); Lymphocytes # 0.9 K/mcL (0.6-4.6); Lymphocytes % 13.9 %; Mean Corpuscular HGB Conc 33.7 g/dL (31.6-35.5); Mean Corpuscular Hemoglobin 32.2 pg (28.0-33.3); Mean Corpuscular Volume 95.7 fL (83.0-100.0); Mean Platelet Volume 9.7 fL (9.4-12.4); Monocytes # 0.6 K/mcL (0.0-1.3); Monocytes % 9.2 %; Neutrophils # 4.9 K/mcL (1.6-8.9); Platelet Count 279 K/mcL (140-400); Red Blood Count 2.08 M/mcL (3.82-4.97); Red Cell Distribution Width 11.6 % (11.5-14.5); Segmented Neutrophils % 74.7 %; White Blood Count 6.5 K/mcL (4.3-11.1)
[2020-04-03 03:50] LABS: Hemoglobin 6.7 g/dL (11.5-15.4)
[2020-04-03 04:10] LABS: BUN/Creatinine Ratio 10 (6-26); Blood Urea Nitrogen 4 mg/dL (6-20); Calcium 8.1 mg/dL (8.6-10.3); Carbon Dioxide 25 mEq/L (23-29); Chloride 100 mEq/L (98-107); Glucose 113 mg/dL (70-105); Osmolality,Calculated 266 (280-300); Potassium 3.7 mEq/L (3.5-5.1); Sodium 129 mEq/L (136-145); eGFR For African Americans > 60 (> 60); eGFR For Non-African Americans > 60 (> 60)
[2020-04-03] MEDS ORDERED: 0.9 % Sodium Chloride 250 ML IVC SCH (06:30)
[2020-04-03] MEDS: Nicotine 7 MG PATCH.TD24 TD SCH (08:46)
[2020-04-03] MEDS: lisinopriL 10 MG TABLET PO SCH (08:47)
[2020-04-03] MEDS ORDERED: Ipratropium/Albuterol Neb 3 ML IH PRN (11:33)
[2020-04-03 12:17] VITALS: BP 126/80
[2020-04-03 13:17] LABS: Hemoglobin 10.1 g/dL (11.5-15.4)
== END 2020-04-03 15:25 | disposition home or self-care (01) ==
LOC: EMEROOARM 13:20 → 3NENU 13:20 → SUATTDRO 16:59 → 3NENU 17:53
PROVIDERS: ADMIT Internal Medicine; ATTEND Internal Medicine